=== PATIENT | male | born 1990 | race African-American/Black ===

== ENCOUNTER 2020-10-23 22:29 | Emergency (ER) | payer SELFPAY ==
[~2020-10-23] VITALS: Ht 177.8 cm; Wt 107.0 kg
[2020-10-23 22:53] VITALS: BP 120/70
[2020-10-23 23:47] LABS: CLARITY URINE CLEAR (CLEAR); COLOR URINE YELLOW (YELLOW); KETONES URINE NEGATIVE (NEGATIVE); LEUKOCYTE ESTERASE URINE NEGATIVE (NEGATIVE); NITRITE URINE NEGATIVE (NEGATIVE); OCCULT BLOOD URINE NEGATIVE (NEGATIVE); PROTEIN URINE NEGATIVE (NEGATIVE); SPECIFIC GRAVITY URINE 1.018 (1.005-1.030)
[2020-10-24] MEDS ORDERED: ONDANSETRON 4MG ODT PO ONE
[2020-10-24] MEDS ORDERED: IBUPROFEN 600MG TABLET PO ONE
== END 2020-10-24 02:55 | disposition left against medical advice (07) ==
LOC: ER 22:29
DX: M54.5 Low back pain (principal)
CPT/HCPCS: 81003; 93005; 99284; Q0162